=== PATIENT | female | born 1955 | race Caucasian/White ===

== ENCOUNTER 2024-03-25 15:44 | Outpatient (CLI) | payer MEDICARE, SELFPAY ==
--- NOTE | 2024-03-25 16:24 | CT_ITS ---
WS: [id number] CT PARANASAL SINUSES HISTORY: CHRONIC SINUSITIS TECHNIQUE: Contiguous 2.0 mm axial images obtained through the sinuses. Images are reconstructed in s agittal and coronal planes. All CT scans at [facility] use at least one of these dose optimiz ation techniques: automated exposure control; mA and/or kV adjustment per patient size (includes targ eted exams where dose is matched to clinical indication); or iterative reconstruction. DLP: 349.88 mGy.cm COMPARISON: None available. Frontal sinuses: Small pneumatized LEFT frontal sinus. RIGHT frontal sinus is not pneumatized. Fronta l ethmoid recesses are normal. Sphenoid sinus: Normal. Ethmoid sinuses: Normal. Maxillary sinus: Normal. No air-fluid levels. Ostiomeatal unit: Widely patent. No obstructive process. Very slight curvature of the nasal septum. No significant bony spur. Orbits and globes are negative. No soft tissue abnormality. CT/CT sinus wo con* [id number] IMPRESSION: 1. No significant acute or chronic sinus disease. 2. Ostiomeatal units are normal. No obstruction.
== END 2024-03-25 15:45 | disposition home or self-care (01) ==
LOC: RAD 15:46
PROVIDERS: Visit Provider Nurse Practitioner
DX: J32.9 Chronic sinusitis, unspecified (principal)
CPT/HCPCS: 70486

== ENCOUNTER → 2024-08-27 09:00 | Outpatient (BNVA) | payer MEDICARE, SELFPAY | PROVIDERS: Visit Provider Nurse Practitioner Family | DX: L57.0 Actinic keratosis (principal); L91.8 Other hypertrophic disorders of the skin; L81.4 Other melanin hyperpigmentation; D22.5 Melanocytic nevi of trunk | CPT/HCPCS: 17000; 17110; 99203 ==

== ENCOUNTER 2024-09-16 08:47 | Outpatient (CLI) | payer MEDICARE, SELFPAY ==
--- NOTE | 2024-09-16 08:54 | MM_ITS ---
WS: [id number] VIEWS: MLO and CC views both breasts. 3D digital tomosynthesis is also included in this exam. Comparison made with prior exam of 03/31/2018, 12/02/2020, 07/27/2022, 08/09/2023, 10/31/2006, 11/03/2008, 08/24/2014.. Findings: The breasts are extremely dense, which lowers the sensitivity of mammography. Stable appearing microcalcifications in the RIGHT breast. No suspicious mass or architectural distort ion in either breast. MM/MM scr BI tomosynthesis [id number] Impression: BI-RADS: 2 - Benign FOLLOW-UP: 1 Year Follow-up This mammogram was also analyzed by the Computer Aided Detection System [employer] Member.
== END 2024-09-16 08:48 | disposition home or self-care (01) ==
LOC: RAD 08:49
PROVIDERS: Visit Provider Internal Medicine
DX: Z12.31 Encounter for screening mammogram for malignant neoplasm of breast (principal); R92.1 Mammographic calcification found on diagnostic imaging of breast
CPT/HCPCS: 77063; 77067

== ENCOUNTER → 2025-08-27 09:34 | Outpatient (BNVA) | payer MEDICARE, SELFPAY | PROVIDERS: Visit Provider Nurse Practitioner Family | DX: L81.4 Other melanin hyperpigmentation (principal); D18.01 Hemangioma of skin and subcutaneous tissue; L82.1 Other seborrheic keratosis | CPT/HCPCS: 99213 ==